=== PATIENT | female | born 2000 | race Caucasian/White ===

== ENCOUNTER 2021-07-17 14:59 | Outpatient (CLI) | payer BC | END 2021-07-17 15:00 | disposition home or self-care (01) | LOC: CSHLAB 14:59 | PROVIDERS: ATTEND Obstetrics & Gynecology | DX: Z01.812 Encounter for preprocedural laboratory examination (principal); Z20.822 Contact with and (suspected) exposure to COVID-19; N83.202 Unspecified ovarian cyst, left side | CPT/HCPCS: 84703; 85027; 86850; 86900; 86901; U0003; U0005 ==

== ENCOUNTER 2021-07-22 08:05 | Day surgery (SDC) | payer BC ==
[2021-07-17 15:33] VITALS: BMI 23.3
[2021-07-17 15:57] LABS: Hemoglobin 12.8 g/dL (12.0-15.5); Mean Corpuscular HGB CONC 33.2 g/dL (32.0-36.0); Mean Corpuscular Volume 90.2 fl (81.6-98.3); Mean Platelet Volume 9.9 fl (7.4-10.4); Platelet Count 298 10x3/uL (150-450); RBC Distribution Width 13.2 % (11.5-14.5); Red Blood Cell (RBC) Count 4.27 10x6/uL (3.90-5.03); White Blood Cell (WBC) Count 6.6 10x3/uL (3.5-10.5)
[2021-07-17 16:21] LABS: BHCG - Serum Negative (NEGATIVE); Pregs Control Background? CLEAR/WHITE (CLR/WHITE); Pregs Control Bar Appear? YES (CONTROL BAR)
[2021-07-18 00:03] LABS: SARS-CoV-2 PCR by NAA Not Detected (NotDetected)
[~2021-07-22 08:05] MED LIST: Bupivacaine PF 0.5% 30 ML VIAL ONE; EPINEPHrine 1 MG/ML AMP ONE
[2021-07-22] MEDS ORDERED: Gabapentin 300 MG CAP ONE (08:15)
[2021-07-22] MEDS ORDERED: CeleCOXIB 100 MG CAP ONE (08:16)
[2021-07-22] MEDS ORDERED: Lidocaine 1% MPF 2 ML VIAL ONE (08:16)
[2021-07-22] MEDS ORDERED: Famotidine/PF 20 mg/2ml Vial ONE (08:16)
[2021-07-22] MEDS ORDERED: PROPOFOL 20 ML ONE (09:55)
[2021-07-22] MEDS ORDERED: Fentanyl 100 MCG/2 ML VIAL ONE ×3 (09:55→11:44)
[2021-07-22] MEDS ORDERED: Dexamethasone 20 MG/5 ML VIAL ONE (09:56)
[2021-07-22] MEDS ORDERED: Lidocaine 1% PF 5 ML VIAL ONE (09:56)
[2021-07-22] MEDS ORDERED: Ondansetron PF 4 MG/2 ML Vial ONE (09:56)
[2021-07-22] MEDS ORDERED: Rocuronium Bromide 10 MG/ML (10ML VIAL) ONE (09:56)
[2021-07-22] MEDS ORDERED: Midazolam HCl 2 mg/2 ml Vial ONE (09:56)
[2021-07-22] MEDS ORDERED: ceFAZolin 2 GM/Dextrose 50 ML IVPB ONE (10:00)
[2021-07-22] MEDS ORDERED: Bupivacaine PF 0.5% 30 ML VIAL ONE (10:09)
[2021-07-22] MEDS ORDERED: EPINEPHrine 1 MG/ML AMP ONE (10:11)
[2021-07-22] MEDS ORDERED: SUGAMMADEX SODIUM 200 MG/2 ML VIAL ONE (11:05)
[2021-07-22] MEDS ORDERED: HYDROcodone/Acetaminophen 5/325 mg Tablet ONE (12:33)
== END 2021-07-22 14:00 | disposition home or self-care (01) ==
LOC: CSHSDC 08:05
PROVIDERS: ATTEND Obstetrics & Gynecology
PROC: 8E0W8CZ Robotic Assisted Procedure of Trunk Region, Via Natural or Artificial Opening Endoscopic (ICD-10-PCS; principal; 2021-07-22)
PROC: 0UT64ZZ Resection of Left Fallopian Tube, Percutaneous Endoscopic Approach (ICD-10-PCS; principal; 2021-07-22)
DX: N70.11 Chronic salpingitis (principal); Z97.5 Presence of (intrauterine) contraceptive device; Z20.822 Contact with and (suspected) exposure to COVID-19
CPT/HCPCS: 36415; 84703; 85027; 86850; 86900; 86901; 88305; J0171; J0690; J1100; J2250; J2405; J2704; J3010; S0020; S0028; U0003; U0005